=== PATIENT | male | born 1985 ===

== ENCOUNTER 2018-10-12 00:20 | Emergency (ER) | payer SELFPAY ==
[~2018-10-12] VITALS: Ht 175.3 cm; Wt 77.1 kg
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
[2018-10-12 01:14] VITALS: BP 113/71
--- NOTE | 2018-10-12 01:45 | NUR ---
ED Nurse Note: returned from break and resumed care, pt in room sitting in chair awake, and alert, pt is angry he was offered motrin and asking for stronger pain medication, md informed, will re-medicate pt and monitor for effectiveness and disposition.
[2018-10-12] MEDS ORDERED: Tylenol #3 tab (300mg/30mg) ORAL ONE (02:00)
[2018-10-12 03:00] VITALS: BP 113/71
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
== END 2018-10-12 03:00 | disposition left against medical advice (07) ==
LOC: EMR 00:20
DX: R51 Headache (principal); V43.52XA Car driver injured in collision with other type car in traffic accident, initial encounter; Y92.410 Unspecified street and highway as the place of occurrence of the external cause
CPT/HCPCS: 99282